=== PATIENT | female | born 1970 | race Caucasian/White ===

== ENCOUNTER 2018-06-19 15:48 | Inpatient (IN) | payer OTHER ==
[2018-06-19] MEDS ORDERED: Albuterol/Ipratropium NEB.SOL* Albuterol 2.5 MG/Ipratropium 0.5 MG 3 ML INH ONE (15:59)
[2018-06-19 16:25] LABS: Influenza A Molecular NEGATIVE (Negative); Influenza B Molecular NEGATIVE (Negative)
[2018-06-19 16:34] LABS: Hematocrit 37 % (35-47); Hemoglobin 12.5 g/dl (12.0-16.0); Mean Corpuscular HGB Conc 34 g/dl (31-36); Mean Corpuscular Hemoglobin 34 pg (27-31); Mean Corpuscular Volume 100 fL (80-97); Mean Platelet Volume 7.1 fL (7.4-10.4); Platelet Count 227 10^3/ul (150-450); Red Blood Count 3.68 10^6/ul (4.00-5.40); Red Cell Distribution Width 13 % (10.5-15); White Blood Count 13.4 10^3/ul (3.5-10.8)
[2018-06-19 16:42] LABS: INR 0.94 (0.77-1.02)
[2018-06-19] MEDS ORDERED: NS 0.9% 1000 ML** 1,000 ML IV.FLUID IV ONE (16:43)
[2018-06-19] MEDS ORDERED: Piperacillin/Tazobac ADVAN(*) 3.375 GM in NS 0.9% 100 ML* 100 ML IVPB ONE (16:43)
[2018-06-19 16:53] LABS: ALT 16 U/L (7-52); AST 22 U/L (13-39); Albumin 4.2 g/dL (3.2-5.2); Albumin/Globulin Ratio 1.7 (1-3); Alkaline Phosphatase 61 U/L (34-104); Anion Gap 10 mmol/L (2-11); Blood Urea Nitrogen 11 mg/dL (6-24); C Reactive Protein 81.35 mg/L (<8.01); CO2 Carbon Dioxide 22 mmol/L (22-32); Calcium 8.8 mg/dL (8.6-10.3); Chloride 99 mmol/L (101-111); Creatine Kinase 202 U/L (10-223); EGFR African American 127.8 (>60); EGFR Non-African American 105.6 (>60); Globulin 2.5 g/dL (2-4); Glucose 128 mg/dL (70-100); Potassium 3.2 mmol/L (3.5-5.0); Sodium 131 mmol/L (135-145); Total Protein 6.7 g/dL (6.4-8.9)
--- NOTE | 2018-06-19 16:54 | ED ---
Shortness of Breath - HPI Summary HPI Summary: Patient is a 47-year-old female with a history of smoking and alcohol abuse presenting to the ED with acute onset right sided chest pain, severe SOB, stating "I couldn't breathe for at least a minute." She denies any radiation of this chest pain. She endorses diaphoresis, denies chills, denies known fevers. She states she is a chronic alcoholic and drank most recently last evening. She states she felt "somewhat ill." Yesterday, but denied any SOB or chest pain. She denies history of blood clots, calf pain or recent travel. She denies any known malignancy. She denies any numbness or tingling in the upper or lower extremities. She denies any visual changes or disturbances. She denies any confusion or memory loss. She states she is able to move all extremities well and denies any pain at this time. Patient was brought in by EMS with a sat of 83% on a nonrebreather, which improved to 92% on 3 L by the time of arrival. She remains on 3L. Temperature 100.1, respirations 22, tachycardia at 128, 127/77. Significant in her history is also strokelike symptoms on of this year. She states for approximately 45 minutes she was unable to speak and could not move. She did not call the ambulance and family did not call ambulance. Symptoms resolved spontaneously and she never followed up with her physician or came to the ED. - History of Current Complaint Chief Complaint: EDShortnessOfBreath Time Seen by Provider: 06/19/18 15:56 Hx Obtained From: Patient Onset/Duration: Sudden Onset Timing: Constant Current Severity: Severe Dyspnea At: Rest Aggrevating Factors: Deep Breaths, Recumbent Position Alleviating Factors: Bronchodilators, EMS Tx, Oxygen, Upright Position Associated Signs & Symptoms: Cough (Productive), Chest Pain w/Cough - Risk Factors Pulmonary Embolism: Negative Cardiac: Smoking Pseudomonas: Chronic Lung Disease Tuberculosis: Immune Deficiency, Malnutrition, Chronic Respiratory Failure, Smoking, Alcohol Abuse - Allergy/Home Medications Allergies/Adverse Reactions: Allergies Allergy/AdvReac Type Severity Reaction Status Date / Time No Known Allergies Allergy Verified 06/19/18 16:29 Home Medications: Home Medications Albuterol Sulfate [Ventolin Hfa] 2 puff INH Q4HR 06/19/18 [History Confirmed 11/30] Citalopram Hydrobromide [Citalopram HBr] 40 mg PO DAILY 06/19/18 [History Confirmed 06/19/18] Gabapentin 300 mg PO TID 06/19/18 [History Confirmed 06/19/18] Ibuprofen 800 mg PO TID PRN 06/19/18 [History Confirmed 06/19/18] Ipratropium HFA INHALER(NF) [Atrovent Hfa Inhaler(NF)] 2 puff INHH Q4HR [History Confirmed 06/19/18] Omeprazole 20 mg PO DAILY 06/19/18 [History Confirmed 06/19/18] PMH/Surg Hx/FS Hx/Imm Hx Previously Healthy: Yes - Immunization History Hx Pertussis Vaccination: No Immunizations Up to Date: Yes Infectious Disease History: No Infectious Disease History: Denies: Traveled Outside the [place] in Last 30 Days - Social History Occupation: Employed Part-time Lives: With Family Alcohol Use: Occasionally Hx Substance Use: No Substance Use Type: Reports: None Hx Tobacco Use: Yes Smoking Status (MU): Heavy Every Day Tobacco Smoker Review of Systems Constitutional: Negative Negative: Fever, Chills, Fatigue, Skin Diaphoresis Negative: Blurred Vision Negative: Sore Throat Positive: Chest Pain. Negative: Palpitations Positive: Shortness Of Breath, Cough, Other - hemoptysis Negative: Abdominal Pain, Vomiting, Diarrhea, Nausea Genitourinary: Negative Positive: no symptoms reported, see HPI Negative: Rash, Bruising Neurological: Negative All Other Systems Reviewed And Are Negative: Yes Physical Exam Triage Information Reviewed: Yes Vital Signs On Initial Exam: Initial Vitals Temp Pulse Resp BP Pulse Ox 100.1 F 128 22 127/77 92 06/19/18 15:54 06/19/18 15:54 06/19/18 15:54 06/19/18 15:54 06/19/18 15:54 Vital Signs Reviewed: Yes Appearance: Positive: Ill-Appearing, Pain Distress Skin: Positive: Skin Color Reflects Adequate Perfusion Head/Face: Positive: Normal Head/Face Inspection Eyes: Positive: EOMI, ALVINO ENT: Positive: Pharynx normal Neck: Positive: Supple, No Lymphadenopathy Respiratory/Lung Sounds: Positive: Rhonchi - R lung base, Wheezes Cardiovascular: Positive: Pulses are Symmetrical in both Upper and Lower Extremities, Tachycardia. Negative: Leg Edema Left, Leg Edema Right Musculoskeletal: Positive: Normal, Strength/ROM Intact Neurological: Positive: Speech Normal Psychiatric: Positive: Affect/Mood Appropriate AVPU Assessment: Alert Diagnostics - Vital Signs Vital Signs Temp Pulse Resp BP Pulse Ox 06/19/18 16:05 109 14 94 06/19/18 15:54 100.1 F 128 22 127/77 92 - Laboratory Lab Results: Lab Results 06/19/18 06/19/18 06/19/18 Range/Units 15:34 15:34 16:13 WBC 13.4 H (3.5-10.8) 10^3/ul RBC 3.68 L (4.00-5.40) 10^6/ul Hgb 12.5 (12.0-16.0) g/dl Hct 37 (35-47) % MCV 100 H (80-97) fL MCH 34 H (27-31) pg MCHC 34 (31-36) g/dl RDW 13 (10.5-15) % Plt Count 227 (150-450) 10^3/ul MPV 7.1 L (7.4-10.4) fL Neut % (Auto) Pending Lymph % (Auto) Pending Gre[place] % (Auto) Pending Eos % (Auto) Pending Baso % (Auto) Pending Absolute Neuts (auto) Pending Absolute Lymphs (auto) Pending Absolute Monos (auto) Pending Absolute Eos (auto) Pending Absolute Basos (auto) Pending Absolute Nucleated RBC Pending Nucleated RBC % Pending INR (Anticoag Therapy) 0.94 (0.77-1.02) D-Dimer, Quantitative 239 H (Less Than 230) ng/mL Influenza A (Rapid) Negative (Negative) Influenza B (Rapid) Negative (Negative) Result Diagrams: 06/22/18 05:42 06/23/18 07:02 Lab Statement: Any lab studies that have been ordered have been reviewed, and results considered in the medical decision making process. Course/Dx - Course Course Of Treatment: During the course, treatment, the patient is evaluated for acute onset SOB and CP most notably over the right chest wall, which occurred 1 hour LIGHTING SPECIALIST. She states there was a short period of time where she could not take a breath. She was able to call the ambulance. By the time ambulance arrived, she was satting at 82%. She was placed on a nonrebreather and then at 3 L nasal cannula and her sat on arrival was 92%. Her vital signs on arrival, met septic criteria. 100.1 temperature, tachycardia 128, respirations 20, BP 127/ 77. Due to vital signs, patient was placed on septic protocol and fluids and Zosyn are given. Stat x-ray obtained which show a right lower lobe density that most likely represents pneumonia according to the patients age. After an appropriate course of therapy, follow-up imaging is advised to ascertain resolution. On reexamination after x-ray was performed, she is currently on 3L at her sat is 93%. Due to her low O2 sat and onset of symptoms and low O2 sat, which is most likely not her baseline, CTA obtained. She appears diaphoretic and uncomfortable. She is very fidgety on physical examination, and she states this is likely secondary to her alcohol use and the uncomfortability in her chest. Awaiting CTA she is signed out to Denae Banks PA-C. - Diagnoses Differential Diagnosis/HQI/PQRI: Positive: Bronchitis Provider Diagnoses: Pneumonia Discharge - Sign-Out/Discharge Documenting (check all that apply): Sign-Out Patient Signing out patient TO: Brii Banks All imaging exams completed and their final reports reviewed: Yes - Discharge Plan Condition: Fair Disposition: ADMITTED TO [facility] - Billing Disposition and Condition Condition: FAIR Disposition: Admitted to [facility]
[2018-06-19] MEDS ORDERED: Iohexol 350* (CONTRAST) 500 ML MDV IV ONE (16:55)
[2018-06-19 16:57] LABS: CKMB ng/mL 4.8 ng/mL (0.6-6.3)
[2018-06-19 16:59] LABS: HCG Pregnancy < 0.60 mIU/mL
[2018-06-19 17:07] LABS: Immature Granulocytes 15 % (0-9); Lymphocytes % 6 %; Monocytes % 4 %; Neutrophil % 75 %
[2018-06-19 17:09] LABS: ABS Basophils 0 10^3/ul (0-0.2); ABS Eosinophils 0 10^3/ul (0-0.6); ABS Lymphocytes 0.4 10^3/ul (1.0-4.8); ABS Monocytes 0.4 10^3/ul (0-0.8); ABS Neutrophils 12.6 10^3/ul (1.5-7.7); ABS Nucleated RBC 0 10^3/ul; Nucleated Red Blood Cells % 0
--- NOTE | 2018-06-19 17:49 | ED ---
Progress - Progress Note Progress Note: patient signed out by valeria pending CTA CTA chest: IMPRESSION: 1. No filling defects of the centrilobular pulmonary arteries to indicate pulmonary embolism. 2. CT findings are most consistent with pneumonia predominantly involving the right middle lobe. Follow-up chest x-ray after an appropriate course of therapy is still advised to ascertain resolution. discussed with patient as still is requiring o2 in ED and hypoxia at home with no at home oxygen for copd will admit patient. 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 She states there was a short period of time where she could not take a breath. She was able to call the ambulance. By the time ambulance arrived, she was satting at 82%. She was placed on a nonrebreather and then at 3 L nasal cannula and her sat on arrival was 92%. Her vital signs on arrival, met septic criteria. 100.1 temperature, tachycardia 128, respirations 20, BP 127/ 77. Due to vital signs, patient was placed on septic protocol and fluids and Zosyn are given. Stat x-ray obtained which show a right lower lobe density that most likely represents pneumonia according to the patients age. After an appropriate course of therapy, follow-up imaging is advised to ascertain resolution. On reexamination after x-ray was performed, she is currently on 3L at her sat is 93%. Due to her low O2 sat and onset of symptoms and low O2 sat, which is most likely not her baseline, CTA obtained. She appears diaphoretic and uncomfortable. She is very fidgety on physical examination, and she states this is likely secondary to her alcohol use and the uncomfortability in her chest. CTA no PE. pneumonia present. discussed with hospitalist who agree to admit - Diagnoses Provider Diagnoses: Pneumonia Discharge - Sign-Out/Discharge Documenting (check all that apply): Patient Departure, Receiving Sign-Out Receiving patient FROM: Valeria Norris - Discharge Plan Condition: Stable Disposition: ADMITTED TO [facility] - Billing Disposition and Condition Condition: STABLE Disposition: Admitted to [facility]
[2018-06-19] MEDS ORDERED: methylPREDNISolone 125 MG* 2 ML VIAL IV ONE (18:00)
[2018-06-19] MEDS ORDERED: Ibuprofen TAB* 600 MG PO ONE (18:13)
[2018-06-19] MEDS ORDERED: Ibuprofen TAB* 600 MG ONE (18:14)
[2018-06-19] MEDS ORDERED: Thiamine IV 100 MG, Folic Acid IV* 1 MG, Multiple Vitamin IV ADULT* 10 ML in NS 0.9% 10... IV ONE (18:37)
[2018-06-19] MEDS ORDERED: Ibuprofen TAB* 800 MG PO PRN (18:41)
[2018-06-19] MEDS: KCL 20 MEQ/100 ML IVPREMIX* 20 MEQ/100 ML BAG IV SCH ×2 (18:42→20:25)
[2018-06-19] MEDS: Albuterol/Ipratropium NEB.SOL* Albuterol 2.5 MG/Ipratropium 0.5 MG 3 ML INH SCH ×2 (19:37→23:12)
[2018-06-19] MEDS: cefTRIAXone(*) 1 GM in NS 0.9% 50 ML* 50 ML IVPB SCH (20:20)
[2018-06-19] MEDS: Azithromycin IV(*) 500 MG in NS 0.9% 250 ML* 250 ML IVPB SCH (20:24)
[2018-06-19] MEDS: Gabapentin CAP(*) 300 MG PO SCH (20:25)
--- NOTE | 2018-06-19 20:32 | HP ---
HISTORY AND PHYSICAL: DATE OF ADMISSION: 06/19/18 PRIMARY CARE PHYSICIAN: The patient does not have a primary care doctor listed. CHIEF COMPLAINT: Chest pressure at the right lung associated with cough. HISTORY OF PRESENT ILLNESS: This is a 47-year-old female with past medical history significant for COPD, smoker, asthma who presents to the emergency room because of chest pressure at the right lung associated with hemoptysis. She reports that she is having a hard time taking inspiration breath, deep inspiration which is then followed by having pain and cough. She is reporting fever at home, reports fever of 101 at home, no chills. She does have generalized fatigue and malaise. She continues to smoke 1/2 Pack per day to one pack per day. PAST MEDICAL HISTORY: 1. Asthma. 2. COPD. 3. Smoker. PAST SURGICAL HISTORY: Ovarian cyst removal. MEDICATIONS: Home medications: 1. Albuterol sulfate 18 g inhaler 2 puffs every 4 hours. 2. Ipratropium of 2 puff inhaler every 4 hours as needed. 3. Citalopram 40 mg daily. 4. Gabapentin 200 mg 3 times a day. 5. Ibuprofen 800 mg as needed. 6. Omeprazole 20 mg daily. FAMILY HISTORY: Mother: Liver cirrhosis. Father: COPD. SOCIAL HISTORY: She lives at home, she drinks daily, smokes half a pack to a pack a day. REVIEW OF SYSTEMS: The patient reporting fever; however, no chills. She does have generalized fatigue and malaise. She is having right-sided chest pain, reports no lower extremity edema. Respiratory: As per HPI. GI: No nausea, no vomiting, no abdominal pain, no diarrhea. : No gross hematuria, no dysuria. Neurological: No focal weakness or sensory loss. Eyes: No visual complaints. No blurry vision. ENT: No dysphagia. Musculoskeletal: No arthralgia or myalgia. Skin: No rashes or lesions. Psychiatric: No psychosis or anxiety. PHYSICAL EXAMINATION GENERAL APPEARANCE: This is a well-developed, well-nourished female, lying in an ER stretcher in mild respiratory distress. VITAL SIGNS: Blood pressure is 141/91, pulse ox of 91% on 2 L nasal cannula, respiratory rate 23, heart rate 102, temperature of 98.5 Fahrenheit. HEENT: Pupils equal, round, reactive to light, atraumatic, normocephalic. LUNGS: There is mild tachypnea with rhonchi heard at the right lower lung field with scattered wheezing. CARDIAC: Regular rate and rhythm. No murmurs, rubs, or gallops. ABDOMEN: Bowel sounds are normal in all 4 quadrants. Abdomen is soft, nontender, nondistended. MUSCULOSKELETAL: There is no cyanosis, clubbing, or edema. Range of motion is intact. NEUROLOGICAL: Alert, oriented x3, with no focal neurological deficits. Tongue is midline. There is no facial droop, symmetric smile. Speech is clear and coherent. PSYCHOLOGICAL: Alert and oriented x3. SKIN: No rashes or lesions. DIAGNOSTIC STUDIES/LAB DATA: White count of 13.4, hemoglobin of 12.5, hematocrit of 37, platelets of 227,000. Absolute neutrophil count of 12.6. INR of 0.94. D- dimer of 239. Chemistry: Sodium 131, potassium 3.2, chloride 99, glucose 128, BUN 11, creatinine of 0.61. Influenza A and B are negative. CT of the chest shows no pulmonary embolism; however, it shows having finding consistent with right middle lobe pneumonia. EKG was done, which shows sinus tachycardia. Troponin was 0.00, CK-MB is 4.8. IMPRESSION AND PLAN: 1. Pneumonia/sepsis with hypoxic respiratory failure: We will start the patient on IV fluids with Rocephin, azithromycin. Blood cultures sent by the ER. Sputum culture ordered. Urine legionella ordered. IV fluids. 2. Hypokalemia: Repletion has been ordered. 3. Hyponatremia: Give IV fluids. Monitor sodium level in the morning. 4. Smoker: Nicotine patch ordered. Smoking cessation advised. 5. Chronic alcohol use: We will start daily multivitamins, folic acid, thiamine, we will monitor for signs and symptoms of alcohol withdrawal. 6. DVT prophylaxis: Heparin subcutaneously. 7. GI prophylaxis, on Prilosec at home. We will substitute for here. 8. Code status: Full code. 9. DVT prophylaxis: Heparin subcutaneously. 10. Disposition: Pending hospital and inpatient progress. [id number]/CPS #: [id number] MTDD
[2018-06-19] MEDS ORDERED: Acetaminophen TAB* 325 MG PO PRN (21:29)
[2018-06-19] MEDS: HYDROcodone/ACETAMIN 5-325 MG* 1 TAB PO PRN (22:08)
[2018-06-19] MEDS: LORazepam TAB(*) 1 MG PO SCH (22:56)
[2018-06-19] MEDS ORDERED: LORazepam TAB(*) 1 MG PO SCH (23:00)
[2018-06-19] MEDS: Heparin VIAL(*) 5000 UNITS/ML VIAL (FIVE THOUSAND) SUBCUT SCH (23:19)
[2018-06-20] MEDS: NS 0.9% 1000 ML** 1,000 ML IV SCH ×2 (01:48→13:26)
[2018-06-20] MEDS: Albuterol/Ipratropium NEB.SOL* Albuterol 2.5 MG/Ipratropium 0.5 MG 3 ML INH SCH ×3 (03:24→11:30)
[2018-06-20] MEDS: Heparin VIAL(*) 5000 UNITS/ML VIAL (FIVE THOUSAND) SUBCUT SCH ×3 (05:23→22:00)
[2018-06-20] MEDS: Nicotine Patch Removal NOTE FOLLOW UP SCH (05:23)
[2018-06-20 07:08] LABS: Hematocrit 32 % (35-47); Hemoglobin 10.8 g/dl (12.0-16.0); Mean Corpuscular HGB Conc 34 g/dl (31-36); Mean Corpuscular Hemoglobin 35 pg (27-31); Mean Corpuscular Volume 100 fL (80-97); Mean Platelet Volume 7.6 fL (7.4-10.4); Platelet Count 177 10^3/ul (150-450); Red Blood Count 3.15 10^6/ul (4.00-5.40); Red Cell Distribution Width 13 % (10.5-15)
[2018-06-20 07:31] LABS: BUN/Creatinine Ratio 18.4 (8-20); Calcium 7.9 mg/dL (8.6-10.3); EGFR African American 164.5 (>60); Magnesium 1.5 mg/dL (1.9-2.7); Phosphorus 1.9 mg/dL (2.5-5.0); Potassium 3.6 mmol/L (3.5-5.0)
[2018-06-20] MEDS: Folic Acid TAB* 1 MG PO SCH (07:52)
[2018-06-20] MEDS: Gabapentin CAP(*) 300 MG PO SCH ×3 (07:52→21:07)
[2018-06-20] MEDS: Citalopram TAB* 40 MG PO SCH (07:53)
[2018-06-20] MEDS: Omeprazole CAP (NF) 20 MG CAP.DR PO SCH (07:53)
[2018-06-20] MEDS: predniSONE TAB* 20 MG PO SCH (07:53)
[2018-06-20] MEDS: Thiamine TAB* 100 MG TAB PO SCH (07:53)
[2018-06-20] MEDS: Nicotine PATCH 14 MG/24 HR* PATCH TRANSDERM SCH (07:54)
[2018-06-20] MEDS: HYDROcodone/ACETAMIN 5-325 MG* 1 TAB PO PRN ×2 (08:04→21:07)
[2018-06-20] MEDS: LORazepam TAB(*) 1 MG PO SCH ×2 (08:04→15:46)
[2018-06-20] MEDS ORDERED: Multivitamins ADULT w/MIN LIQ* 15 ML UDC PO SCH (09:00)
[2018-06-20] MEDS ORDERED: Magnesium Sulfate 2 GM IV* 2 GM/50 ML BAG IVPB ONE (12:22)
--- NOTE | 2018-06-20 12:29 | PN ---
Subjective Date of Service: 06/20/18 Interval History: Admitted yesterday for pneumonia, no overnight issues, continues to have some cough. Objective Active Medications: Acetaminophen (Tylenol Tab*) 650 mg PO Q4H PRN PRN Reason: FEVER/HEADACHE Hydrocodone Bitart/Acetaminophen ([place] 5-325 Tab*) 1 tab PO Q6H PRN PRN Reason: PAIN Last Admin: 06/20/18 08:04 Dose: 1 tab Citalopram Hydrobromide (Celexa Tab*) 40 mg PO DAILY [facility] Last Admin: 06/20/18 07:53 Dose: 40 mg Folic Acid (Folvite Tab*) 1 mg PO DAILY [facility] Last Admin: 06/20/18 07:52 Dose: 1 mg Gabapentin (Neurontin Cap(*)) 300 mg PO TID [facility] Last Admin: 06/20/18 07:52 Dose: 300 mg Heparin Sodium (Porcine) (Heparin Vial(*)) 5,000 units SUBCUT Q8HR [facility] Last Admin: 06/20/18 05:23 Dose: 5,000 units Ceftriaxone Sodium 1 gm/ (Sodium Chloride) 50 mls @ 200 mls/hr IVPB Q24H [facility] Last Admin: 06/19/18 20:20 Dose: 200 mls/hr Azithromycin 500 mg/ Sodium (Chloride) 250 mls @ 250 mls/hr IVPB Q24H [facility] Last Admin: 06/19/18 20:24 Dose: 250 mls/hr Sodium Chloride (Ns 0.9% 1000 Ml*) 1,000 mls @ 100 mls/hr IV PER RATE [facility] Last Admin: 06/20/18 01:48 Dose: 100 mls/hr Magnesium Sulfate (Magnesium Sulfate 2 Gm Iv*) 2 gm in 50 mls @ 50 mls/hr IVPB ONCE ONE Stop: 06/20/18 13:21 Potassium Phosphate 10 mmole/ (Sodium Chloride) 253.3333 mls @ 42 mls/hr IVPB ONCE ONE Stop: 06/20/18 18:23 Ibuprofen (Motrin Tab*) 800 mg PO TID PRN PRN Reason: PAIN Lorazepam (Ativan Tab(*)) 0 - 6 mg PO .PER WAM PROTOCOL [facility]; Protocol Lorazepam (Ativan Tab(*)) 2 mg PO Q8H KERRY; Taper Stop: 06/22/18 18:59 Last Admin: 06/20/18 08:04 Dose: 2 mg Nicotine (Nicotine Patch 14 Mg/24 Hr*) 1 patch TRANSDERM DAILY [facility] Last Admin: 06/20/18 07:54 Dose: Not Given Omeprazole (Prilosec Cap*) 20 mg PO DAILY [facility] Last Admin: 06/20/18 07:53 Dose: 20 mg Pharmacy Profile Note (Nicotine Patch Removal Note*) 1 note FOLLOW UP 0600 [facility] Last Admin: 06/20/18 05:23 Dose: Not Given Prednisone (Deltasone Tab*) 40 mg PO DAILY [facility] Last Admin: 06/20/18 07:53 Dose: 40 mg Thiamine HCl (Vitamin B-1 Tab*) 100 mg PO DAILY [facility] Last Admin: 06/20/18 07:53 Dose: 100 mg Vital Signs - 8 hr 06/20/18 06/20/18 06/20/18 05:59 07:25 07:52 Temperature 97.7 F Pulse Rate 87 62 Respiratory 20 18 16 Rate Blood Pressure 158/70 (mmHg) O2 Sat by Pulse 98 100 Oximetry 06/20/18 06/20/18 06/20/18 08:00 08:04 08:10 Temperature 97.7 F Pulse Rate 76 Respiratory 18 16 16 Rate Blood Pressure 123/86 (mmHg) O2 Sat by Pulse 99 Oximetry 06/20/18 06/20/18 06/20/18 10:10 11:06 11:07 Temperature Pulse Rate Respiratory 16 16 16 Rate Blood Pressure (mmHg) O2 Sat by Pulse Oximetry Oxygen Devices in Use Now: None Appearance: tired appearing, not in distress. Eyes: PERRLA Respiratory: - - mild rhonchi with wheezing. Abdominal: NL Sounds; No Tenderness; No Distention Extremities: No Edema Skin: No Rash or Ulcers Result Diagrams: 06/20/18 06:51 06/20/18 06:51 Additional Lab and Data: Lab Results 06/19/18 06/19/18 06/19/18 Range/Units 15:34 15:34 16:13 WBC 13.4 H (3.5-10.8) 10^3/ul RBC 3.68 L (4.00-5.40) 10^6/ul Hgb 12.5 (12.0-16.0) g/dl Hct 37 (35-47) % MCV 100 H (80-97) fL MCH 34 H (27-31) pg MCHC 34 (31-36) g/dl RDW 13 (10.5-15) % Plt Count 227 (150-450) 10^3/ul MPV 7.1 L (7.4-10.4) fL Neut % (Auto) Pending Lymph % (Auto) Pending [facility] % (Auto) Pending Eos % (Auto) Pending Baso % (Auto) Pending Absolute Neuts (auto) Pending Absolute Lymphs (auto) Pending Absolute Monos (auto) Pending Absolute Eos (auto) Pending Absolute Basos (auto) Pending Absolute Nucleated RBC Pending Nucleated RBC % Pending INR (Anticoag Therapy) 0.94 (0.77-1.02) D-Dimer, Quantitative 239 H (Less Than 230) ng/mL Influenza A (Rapid) Negative (Negative) Influenza B (Rapid) Negative (Negative) Microbiology and Other Data: Microbiology 06/19/18 15:34 Anaerobic Blood Culture - Preliminary Blood Venous 06/20/18 08:25 Gram Stain - Final Sputum 06/19/18 15:57 Influenza Types A,B Antigen - Final Nasal Specimen received for Influenza A/B Molecular testing Assess/Plan/Problems-Billing Assessment: 47 year Female with asthma/copd, here with pneumonia and COPD exacerbation. Also found to have bactremia. - Patient Problems (1) Bacteremia Current Visit: Yes Status: Acute Code(s): R78.81 - BACTEREMIA SNOMED Code( s): 4127393 Comment: Blood culture from 06/19 shows GPC, repeat cultures sent, continue w/ rocephin and azithyromcyin. (2) Pneumonia Current Visit: Yes Status: Acute Code(s): J18.9 - PNEUMONIA, UNSPECIFIED ORGANISM SNOMED Code(s): 318317501 Comment: right middle lobe pneumonia, c/w rocephin and azithromycin Day 2. (3) COPD exacerbation Current Visit: Yes Status: Acute Code(s): J44.1 - CHRONIC OBSTRUCTIVE PULMONARY DISEASE W (ACUTE) EXACERBATION SNOMED Code(s): 527313813 Comment: continue prednisone 40mg, duonebs. currently on room air. (4) Smoker Current Visit: Yes Status: Acute Code(s): F17.200 - NICOTINE DEPENDENCE, UNSPECIFIED, UNCOMPLICATED SNOMED Code(s): 62436556 Comment: nicotine patch (5) Alcohol use Current Visit: Yes Status: Acute Code(s): Z78.9 - OTHER SPECIFIED HEALTH STATUS SNOMED Code(s): 611295 Comment: continue thiamine, folic acid. (6) DVT prophylaxis Current Visit: Yes Status: Acute Code(s): FPM2596 - SNOMED Code(s): 433772446 Comment: heparin subQ (7) Hypomagnesemia Current Visit: Yes Status: Acute Code(s): E83.42 - HYPOMAGNESEMIA SNOMED Code(s): 579424459 Comment: repleted 06/20 (8) Hypokalemia Current Visit: Yes Status: Acute Code(s): E87.6 - HYPOKALEMIA SNOMED Code( s): 62699335 Comment: Repleted 06/20. (9) Hypophosphatemia Current Visit: Yes Status: Acute Code(s): E83.39 - OTHER DISORDERS OF PHOSPHORUS METABOLISM SNOMED Code(s): 7925665 Comment: repleted 06/20
[2018-06-20] MEDS ORDERED: Potassium Phosphate IV* 10 MMOLE in NS 0.9% 250 ML* 250 ML IVPB ONE (13:00)
[2018-06-20] MEDS ORDERED: Mouth Piece, Nicotine* 1 EACH CARTRIDGE ONE (21:00)
[2018-06-20] MEDS ORDERED: Nicotine Inhaler* 10 MG AMP ONE (21:01)
[2018-06-20] MEDS: cefTRIAXone(*) 1 GM in NS 0.9% 50 ML* 50 ML IVPB SCH (21:06)
[2018-06-20] MEDS ORDERED: Mouth Piece, Nicotine* 1 EACH CARTRIDGE INH ONE (22:00)
[2018-06-20] MEDS: Azithromycin IV(*) 500 MG in NS 0.9% 250 ML* 250 ML IVPB SCH (22:00)
[2018-06-21] MEDS: NS 0.9% 1000 ML** 1,000 ML IV SCH ×2 (02:33→14:11)
[2018-06-21] MEDS: Albuterol/Ipratropium NEB.SOL* Albuterol 2.5 MG/Ipratropium 0.5 MG 3 ML INH PRN ×3 (04:34→22:04)
[2018-06-21] MEDS: Nicotine Patch Removal NOTE FOLLOW UP SCH (05:44)
[2018-06-21] MEDS: Heparin VIAL(*) 5000 UNITS/ML VIAL (FIVE THOUSAND) SUBCUT SCH ×3 (05:48→22:53)
[2018-06-21 06:30] LABS: Hematocrit 29 % (35-47); Hemoglobin 9.9 g/dl (12.0-16.0); Mean Corpuscular HGB Conc 34 g/dl (31-36); Mean Corpuscular Hemoglobin 34 pg (27-31); Mean Corpuscular Volume 101 fL (80-97); Platelet Count 163 10^3/ul (150-450); Red Blood Count 2.91 10^6/ul (4.00-5.40); Red Cell Distribution Width 13 % (10.5-15); White Blood Count 16.1 10^3/ul (3.5-10.8)
[2018-06-21 06:52] LABS: BUN/Creatinine Ratio 16.7 (8-20); Calcium 7.9 mg/dL (8.6-10.3); EGFR African American 168.5 (>60); EGFR Non-African American 139.2 (>60); Magnesium 1.9 mg/dL (1.9-2.7); Phosphorus 1.4 mg/dL (2.5-5.0); Potassium 3.4 mmol/L (3.5-5.0)
[2018-06-21] MEDS ORDERED: Potassium Phosphate IV* 15 MMOLE in NS 0.9% 250 ML* 250 ML IVPB ONE (07:54)
[2018-06-21] MEDS: Omeprazole CAP (NF) 20 MG CAP.DR PO SCH (08:05)
[2018-06-21] MEDS: predniSONE TAB* 20 MG PO SCH (08:05)
[2018-06-21] MEDS: Folic Acid TAB* 1 MG PO SCH (08:05)
[2018-06-21] MEDS: HYDROcodone/ACETAMIN 5-325 MG* 1 TAB PO PRN ×2 (08:05→22:55)
[2018-06-21] MEDS: Citalopram TAB* 40 MG PO SCH (08:06)
[2018-06-21] MEDS: Thiamine TAB* 100 MG TAB PO SCH (08:06)
[2018-06-21] MEDS: Nicotine PATCH 14 MG/24 HR* PATCH TRANSDERM SCH (08:06)
[2018-06-21] MEDS: Gabapentin CAP(*) 300 MG PO SCH ×3 (08:06→22:51)
--- NOTE | 2018-06-21 10:38 | PN ---
Subjective Date of Service: 06/21/18 Interval History: No acute issues overnight. Not having any shortness of breath, minimal cough, chest pain at the right side has subsided. Objective Active Medications: Acetaminophen (Tylenol Tab*) 650 mg PO Q4H PRN PRN Reason: FEVER/HEADACHE Hydrocodone Bitart/Acetaminophen ([place] 5-325 Tab*) 1 tab PO Q6H PRN PRN Reason: PAIN Last Admin: 06/21/18 08:05 Dose: 1 tab Albuterol/Ipratropium (Duoneb (Albuterol 2.5 Mg/Ipratropium 0.5 Mg)) 1 neb INH Q4H PRN PRN Reason: SOB/WHEEZING Last Admin: 06/21/18 08:42 Dose: 1 neb Citalopram Hydrobromide (Celexa Tab*) 40 mg PO DAILY [facility] Last Admin: 06/21/18 08:06 Dose: 40 mg Folic Acid (Folvite Tab*) 1 mg PO DAILY [facility] Last Admin: 06/21/18 08:05 Dose: 1 mg Gabapentin (Neurontin Cap(*)) 300 mg PO TID [facility] Last Admin: 06/21/18 08:06 Dose: 300 mg Heparin Sodium (Porcine) (Heparin Vial(*)) 5,000 units SUBCUT Q8HR [facility] Last Admin: 06/21/18 05:48 Dose: 5,000 units Ceftriaxone Sodium 1 gm/ (Sodium Chloride) 50 mls @ 200 mls/hr IVPB Q24H [facility] Last Admin: 06/20/18 21:06 Dose: 200 mls/hr Azithromycin 500 mg/ Sodium (Chloride) 250 mls @ 250 mls/hr IVPB Q24H [facility] Last Admin: 06/20/18 22:00 Dose: 250 mls/hr Sodium Chloride (Ns 0.9% 1000 Ml*) 1,000 mls @ 100 mls/hr IV PER RATE [facility] Last Admin: 06/21/18 02:33 Dose: 100 mls/hr Potassium Phosphate 15 mmole/ (Sodium Chloride) 255 mls @ 42 mls/hr IVPB ONCE ONE Stop: 06/21/18 13:58 Last Admin: 06/21/18 09:32 Dose: 42 mls/hr Ibuprofen (Motrin Tab*) 800 mg PO TID PRN PRN Reason: PAIN Lorazepam (Ativan Tab(*)) 0 - 6 mg PO .PER [facility] PROTOCOL [facility]; Protocol Nicotine (Nicotine Patch 14 Mg/24 Hr*) 1 patch TRANSDERM DAILY [facility] Last Admin: 06/21/18 08:06 Dose: Not Given Nicotine (Nicotine Inhaler*) 10 mg INH Q2H PRN PRN Reason: CRAVING Omeprazole (Prilosec Cap*) 20 mg PO DAILY [facility] Last Admin: 06/21/18 08:05 Dose: 20 mg Pharmacy Profile Note (Nicotine Patch Removal Note*) 1 note FOLLOW UP 0600 [facility] Last Admin: 06/21/18 05:44 Dose: Not Given Prednisone (Deltasone Tab*) 40 mg PO DAILY [facility] Last Admin: 06/21/18 08:05 Dose: 40 mg Thiamine HCl (Vitamin B-1 Tab*) 100 mg PO DAILY [facility] Last Admin: 06/21/18 08:06 Dose: 100 mg Vital Signs - 8 hr 06/21/18 06/21/18 06/21/18 03:00 04:00 04:10 Temperature 98.2 F Pulse Rate 99 Respiratory 18 18 16 Rate Blood Pressure 154/94 (mmHg) O2 Sat by Pulse 96 Oximetry 06/21/18 06/21/18 06/21/18 04:34 07:00 07:15 Temperature 97.3 F Pulse Rate 82 90 Respiratory 20 18 16 Rate Blood Pressure 146/89 (mmHg) O2 Sat by Pulse 99 94 Oximetry 06/21/18 06/21/18 06/21/18 08:00 08:05 08:06 Temperature Pulse Rate Respiratory 16 18 18 Rate Blood Pressure (mmHg) O2 Sat by Pulse Oximetry Oxygen Devices in Use Now: Nasal Cannula Eyes: PERRLA Respiratory: - - mild rhonchi, no wheezing, no crackles. Cardiovascular: RRR, No Edema Abdominal: NL Sounds; No Tenderness; No Distention Neurological: Alert and Oriented x 3, - - no hand tremors. Result Diagrams: 06/21/18 06:04 06/21/18 06:04 Additional Lab and Data: Lab Results 06/19/18 06/19/18 06/19/18 Range/Units 15:34 15:34 16:13 WBC 13.4 H (3.5-10.8) 10^3/ul RBC 3.68 L (4.00-5.40) 10^6/ul Hgb 12.5 (12.0-16.0) g/dl Hct 37 (35-47) % MCV 100 H (80-97) fL MCH 34 H (27-31) pg MCHC 34 (31-36) g/dl RDW 13 (10.5-15) % Plt Count 227 (150-450) 10^3/ul MPV 7.1 L (7.4-10.4) fL Neut % (Auto) Pending Lymph % (Auto) Pending [place] % (Auto) Pending Eos % (Auto) Pending Baso % (Auto) Pending Absolute Neuts (auto) Pending Absolute Lymphs (auto) Pending Absolute Monos (auto) Pending Absolute Eos (auto) Pending Absolute Basos (auto) Pending Absolute Nucleated RBC Pending Nucleated RBC % Pending INR (Anticoag Therapy) 0.94 (0.77-1.02) D-Dimer, Quantitative 239 H (Less Than 230) ng/mL Influenza A (Rapid) Negative (Negative) Influenza B (Rapid) Negative (Negative) Microbiology and Other Data: Microbiology 06/19/18 15:34 Anaerobic Blood Culture - Preliminary Blood Venous 06/20/18 08:25 Gram Stain - Final Sputum 06/19/18 15:57 Influenza Types A,B Antigen - Final Nasal Specimen received for Influenza A/B Molecular testing Assess/Plan/Problems-Billing Assessment: 47 year Female with asthma/copd, here with pneumonia and COPD exacerbation. Also found to have bactremia. - Patient Problems (1) Bacteremia Current Visit: Yes Status: Acute Code(s): R78.81 - BACTEREMIA SNOMED Code( s): 0690030 Comment: Blood culture from 06/19 shows GPC, repeat cultures sent, continue w/ rocephin and azithyromcyin. (2) Pneumonia Current Visit: Yes Status: Acute Code(s): J18.9 - PNEUMONIA, UNSPECIFIED ORGANISM SNOMED Code(s): 859204862 Comment: right middle lobe pneumonia, c/w rocephin and azithromycin Day 3. urine legionella is negative., sputum shows strep pneumo (3) COPD exacerbation Current Visit: Yes Status: Acute Code(s): J44.1 - CHRONIC OBSTRUCTIVE PULMONARY DISEASE W (ACUTE) EXACERBATION SNOMED Code(s): 567649413 Comment: continue prednisone 40mg, duonebs. Improved. (4) Smoker Current Visit: Yes Status: Acute Code(s): F17.200 - NICOTINE DEPENDENCE, UNSPECIFIED, UNCOMPLICATED SNOMED Code(s): 35067010 Comment: nicotine patch (5) Alcohol use Current Visit: Yes Status: Acute Code(s): Z78.9 - OTHER SPECIFIED HEALTH STATUS SNOMED Code(s): 366248 Comment: Not withdrawing, will monitor for withdrawal. continue thiamine, folic acid. (6) DVT prophylaxis Current Visit: Yes Status: Acute Code(s): RBJ3292 - SNOMED Code(s): 865968663 Comment: heparin subQ (7) Hypomagnesemia Current Visit: Yes Status: Acute Code(s): E83.42 - HYPOMAGNESEMIA SNOMED Code(s): 650549067 Comment: repleted 06/20 (8) Hypokalemia Current Visit: Yes Status: Acute Code(s): E87.6 - HYPOKALEMIA SNOMED Code( s): 38183502 Comment: Repleted 06/21. (9) Hypophosphatemia Current Visit: Yes Status: Acute Code(s): E83.39 - OTHER DISORDERS OF PHOSPHORUS METABOLISM SNOMED Code(s): 3907590 Comment: repleted 06/21 Status and Disposition: Likely discharge home when medically stable.
[2018-06-21] MEDS: Nicotine Inhaler* 10 MG AMP INH PRN (14:49)
[2018-06-21] MEDS: cefTRIAXone(*) 1 GM in NS 0.9% 50 ML* 50 ML IVPB SCH (19:43)
[2018-06-21] MEDS: Azithromycin IV(*) 500 MG in NS 0.9% 250 ML* 250 ML IVPB SCH (21:00)
[2018-06-22] MEDS: NS 0.9% 1000 ML** 1,000 ML IV SCH ×2 (03:28→12:46)
[2018-06-22] MEDS: HYDROcodone/ACETAMIN 5-325 MG* 1 TAB PO PRN ×3 (04:44→19:47)
[2018-06-22 06:05] LABS: ABS Basophils 0 10^3/ul (0-0.2); ABS Eosinophils 0 10^3/ul (0-0.6); ABS Lymphocytes 2.8 10^3/ul (1.0-4.8); ABS Monocytes 0.6 10^3/ul (0-0.8); ABS Neutrophils 13.1 10^3/ul (1.5-7.7); ABS Nucleated RBC 0 10^3/ul; Eosinophil % 0.3 %; Hematocrit 30 % (35-47); Lymphocyte % 16.7 %; Mean Corpuscular HGB Conc 34 g/dl (31-36); Mean Corpuscular Hemoglobin 34 pg (27-31); Mean Corpuscular Volume 100 fL (80-97); Mean Platelet Volume 7.9 fL (7.4-10.4); Nucleated Red Blood Cells % 0.1; Platelet Count 183 10^3/ul (150-450); Red Blood Count 2.96 10^6/ul (4.00-5.40); Red Cell Distribution Width 13 % (10.5-15); White Blood Count 16.6 10^3/ul (3.5-10.8)
[2018-06-22 06:22] LABS: Calcium 8.1 mg/dL (8.6-10.3); EGFR African American 172.6 (>60); EGFR Non-African American 142.7 (>60); Magnesium 1.7 mg/dL (1.9-2.7); Potassium 3.2 mmol/L (3.5-5.0)
[2018-06-22] MEDS: Heparin VIAL(*) 5000 UNITS/ML VIAL (FIVE THOUSAND) SUBCUT SCH ×3 (06:25→21:28)
[2018-06-22] MEDS: Nicotine Patch Removal NOTE FOLLOW UP SCH (06:45)
[2018-06-22] MEDS: Citalopram TAB* 40 MG PO SCH (07:46)
[2018-06-22] MEDS: Thiamine TAB* 100 MG TAB PO SCH (07:47)
[2018-06-22] MEDS: Folic Acid TAB* 1 MG PO SCH (07:47)
[2018-06-22] MEDS: predniSONE TAB* 20 MG PO SCH (07:47)
[2018-06-22] MEDS: Gabapentin CAP(*) 300 MG PO SCH ×3 (07:47→21:24)
[2018-06-22] MEDS: Nicotine PATCH 14 MG/24 HR* PATCH TRANSDERM SCH (07:47)
[2018-06-22] MEDS: Omeprazole CAP (NF) 20 MG CAP.DR PO SCH (07:47)
[2018-06-22] MEDS ORDERED: Magnesium Sulfate 2 GM IV* 2 GM/50 ML BAG IVPB ONE (08:34)
--- NOTE | 2018-06-22 08:35 | PN ---
Subjective Date of Service: 06/22/18 Interval History: No acute issues overnight. Continues to have mild cough with sputum production, no shortness of breath, no chest pain. Objective Active Medications: Acetaminophen (Tylenol Tab*) 650 mg PO Q4H PRN PRN Reason: FEVER/HEADACHE Hydrocodone Bitart/Acetaminophen ([place] 5-325 Tab*) 1 tab PO Q6H PRN PRN Reason: PAIN Last Admin: 06/22/18 04:44 Dose: 1 tab Albuterol/Ipratropium (Duoneb (Albuterol 2.5 Mg/Ipratropium 0.5 Mg)) 1 neb INH Q4H PRN PRN Reason: SOB/WHEEZING Last Admin: 06/21/18 22:04 Dose: 1 neb Citalopram Hydrobromide (Celexa Tab*) 40 mg PO DAILY [facility] Last Admin: 06/22/18 07:46 Dose: 40 mg Folic Acid (Folvite Tab*) 1 mg PO DAILY [facility] Last Admin: 06/22/18 07:47 Dose: 1 mg Gabapentin (Neurontin Cap(*)) 300 mg PO TID [facility] Last Admin: 06/22/18 07:47 Dose: 300 mg Heparin Sodium (Porcine) (Heparin Vial(*)) 5,000 units SUBCUT Q8HR [facility] Last Admin: 06/22/18 06:25 Dose: 5,000 units Ceftriaxone Sodium 1 gm/ (Sodium Chloride) 50 mls @ 200 mls/hr IVPB Q24H [facility] Last Admin: 06/21/18 19:43 Dose: 200 mls/hr Azithromycin 500 mg/ Sodium (Chloride) 250 mls @ 250 mls/hr IVPB Q24H [facility] Last Admin: 06/21/18 21:00 Dose: 250 mls/hr Sodium Chloride (Ns 0.9% 1000 Ml*) 1,000 mls @ 100 mls/hr IV PER RATE [facility] Last Admin: 06/22/18 03:28 Dose: 100 mls/hr Magnesium Sulfate (Magnesium Sulfate 2 Gm Iv*) 2 gm in 50 mls @ 50 mls/hr IVPB ONCE ONE Stop: 06/22/18 09:33 Potassium Phosphate 15 mmole/ (Sodium Chloride) 255 mls @ 42 mls/hr IVPB ONCE ONE Stop: 06/22/18 14:37 Ibuprofen (Motrin Tab*) 800 mg PO TID PRN PRN Reason: PAIN Lorazepam (Ativan Tab(*)) 0 - 6 mg PO .PER [facility] PROTOCOL [facility]; Protocol Nicotine (Nicotine Patch 14 Mg/24 Hr*) 1 patch TRANSDERM DAILY [facility] Last Admin: 06/22/18 07:47 Dose: Not Given Nicotine (Nicotine Inhaler*) 10 mg INH Q2H PRN PRN Reason: CRAVING Last Admin: 06/21/18 14:49 Dose: 10 mg Omeprazole (Prilosec Cap*) 20 mg PO DAILY [facility] Last Admin: 06/22/18 07:47 Dose: 20 mg Pharmacy Profile Note (Nicotine Patch Removal Note*) 1 note FOLLOW UP 0600 [facility] Last Admin: 06/22/18 06:45 Dose: Not Given Prednisone (Deltasone Tab*) 40 mg PO DAILY [facility] Last Admin: 06/22/18 07:47 Dose: 40 mg Thiamine HCl (Vitamin B-1 Tab*) 100 mg PO DAILY [facility] Last Admin: 06/22/18 07:47 Dose: 100 mg Vital Signs - 8 hr 06/22/18 06/22/18 06/22/18 01:10 03:44 04:44 Temperature 98.0 F Pulse Rate 75 Respiratory 16 20 20 Rate Blood Pressure 152/108 (mmHg) O2 Sat by Pulse 95 Oximetry 06/22/18 06/22/18 06/22/18 07:05 07:44 07:47 Temperature 97.8 F Pulse Rate 76 Respiratory 16 16 16 Rate Blood Pressure 151/76 (mmHg) O2 Sat by Pulse 95 Oximetry 06/22/18 07:54 Temperature Pulse Rate Respiratory 16 Rate Blood Pressure (mmHg) O2 Sat by Pulse Oximetry Oxygen Devices in Use Now: None Eyes: PERRLA Ears/Nose/Mouth/Throat: Mucous Membranes Moist Respiratory: - - mild expiratory wheezing. Cardiovascular: RRR Neurological: Alert and Oriented x 3 Result Diagrams: 06/22/18 05:42 06/22/18 05:42 Additional Lab and Data: Lab Results 06/19/18 06/19/18 06/19/18 Range/Units 15:34 15:34 16:13 WBC 13.4 H (3.5-10.8) 10^3/ul RBC 3.68 L (4.00-5.40) 10^6/ul Hgb 12.5 (12.0-16.0) g/dl Hct 37 (35-47) % MCV 100 H (80-97) fL MCH 34 H (27-31) pg MCHC 34 (31-36) g/dl RDW 13 (10.5-15) % Plt Count 227 (150-450) 10^3/ul MPV 7.1 L (7.4-10.4) fL Neut % (Auto) Pending Lymph % (Auto) Pending [place] % (Auto) Pending Eos % (Auto) Pending Baso % (Auto) Pending Absolute Neuts (auto) Pending Absolute Lymphs (auto) Pending Absolute Monos (auto) Pending Absolute Eos (auto) Pending Absolute Basos (auto) Pending Absolute Nucleated RBC Pending Nucleated RBC % Pending INR (Anticoag Therapy) 0.94 (0.77-1.02) D-Dimer, Quantitative 239 H (Less Than 230) ng/mL Influenza A (Rapid) Negative (Negative) Influenza B (Rapid) Negative (Negative) Microbiology and Other Data: Microbiology 06/19/18 15:34 Anaerobic Blood Culture - Preliminary Blood Venous 06/20/18 08:25 Gram Stain - Final Sputum 06/19/18 15:57 Influenza Types A,B Antigen - Final Nasal Specimen received for Influenza A/B Molecular testing Assess/Plan/Problems-Billing Assessment: 47 year Female with asthma/copd, here with pneumonia and COPD exacerbation. Also found to have bactremia. - Patient Problems (1) Bacteremia Current Visit: Yes Status: Acute Code(s): R78.81 - BACTEREMIA SNOMED Code( s): 2409469 Comment: Blood culture from 06/19 shows strep pneumo, repeat cultures negative thus far, continue w/ rocephin and azithyromcyin. (2) Pneumonia Current Visit: Yes Status: Acute Code(s): J18.9 - PNEUMONIA, UNSPECIFIED ORGANISM SNOMED Code(s): 190275766 Comment: right middle lobe pneumonia, c/w rocephin and azithromycin Day 4. urine legionella is negative., sputum shows strep pneumo (3) COPD exacerbation Current Visit: Yes Status: Acute Code(s): J44.1 - CHRONIC OBSTRUCTIVE PULMONARY DISEASE W (ACUTE) EXACERBATION SNOMED Code(s): 841635044 Comment: continue prednisone 40mg, duonebs. Improved. (4) Smoker Current Visit: Yes Status: Acute Code(s): F17.200 - NICOTINE DEPENDENCE, UNSPECIFIED, UNCOMPLICATED SNOMED Code(s): 13882063 Comment: nicotine patch (5) Alcohol use Current Visit: Yes Status: Acute Code(s): Z78.9 - OTHER SPECIFIED HEALTH STATUS SNOMED Code(s): 408828 Comment: Not withdrawing, will monitor for withdrawal. continue thiamine, folic acid. (6) DVT prophylaxis Current Visit: Yes Status: Acute Code(s): KSS0116 - SNOMED Code(s): 177325260 Comment: heparin subQ (7) Hypomagnesemia Current Visit: Yes Status: Acute Code(s): E83.42 - HYPOMAGNESEMIA SNOMED Code(s): 960640621 Comment: repleted 06/22 (8) Hypokalemia Current Visit: Yes Status: Acute Code(s): E87.6 - HYPOKALEMIA SNOMED Code( s): 34032683 Comment: Repleted 06/22 (9) Hypophosphatemia Current Visit: Yes Status: Acute Code(s): E83.39 - OTHER DISORDERS OF PHOSPHORUS METABOLISM SNOMED Code(s): 9684901 Comment: repleted 06/22 Status and Disposition: Likely discharge home when medically stable.
[2018-06-22] MEDS ORDERED: Ondansetron INJ* 2 MG/ML VIAL IV PRN (08:38)
[2018-06-22] MEDS: Albuterol/Ipratropium NEB.SOL* Albuterol 2.5 MG/Ipratropium 0.5 MG 3 ML INH PRN (08:59)
[2018-06-22] MEDS ORDERED: Potassium Phosphate IV* 15 MMOLE in NS 0.9% 250 ML* 250 ML IVPB ONE (09:30)
[2018-06-22] MEDS: cefTRIAXone(*) 1 GM in NS 0.9% 50 ML* 50 ML IVPB SCH (19:49)
[2018-06-22] MEDS: Azithromycin IV(*) 500 MG in NS 0.9% 250 ML* 250 ML IVPB SCH (21:24)
[2018-06-22] MEDS: Nicotine Inhaler* 10 MG AMP INH PRN (21:27)
[2018-06-23] MEDS: NS 0.9% 1000 ML** 1,000 ML IV SCH (01:09)
[2018-06-23] MEDS: Heparin VIAL(*) 5000 UNITS/ML VIAL (FIVE THOUSAND) SUBCUT SCH ×2 (05:26→13:12)
[2018-06-23] MEDS: HYDROcodone/ACETAMIN 5-325 MG* 1 TAB PO PRN ×2 (05:28→11:25)
[2018-06-23] MEDS: Nicotine Patch Removal NOTE FOLLOW UP SCH (05:36)
[2018-06-23 07:39] LABS: BUN/Creatinine Ratio 14.6 (8-20); Calcium 8.8 mg/dL (8.6-10.3); EGFR African American 168.5 (>60); EGFR Non-African American 139.2 (>60); Magnesium 1.6 mg/dL (1.9-2.7); Phosphorus 2.8 mg/dL (2.5-5.0); Potassium 3.1 mmol/L (3.5-5.0)
[2018-06-23] MEDS: Gabapentin CAP(*) 300 MG PO SCH ×2 (07:44→12:59)
[2018-06-23] MEDS: Folic Acid TAB* 1 MG PO SCH (07:44)
[2018-06-23] MEDS: Omeprazole CAP (NF) 20 MG CAP.DR PO SCH (07:44)
[2018-06-23] MEDS: Thiamine TAB* 100 MG TAB PO SCH (07:45)
[2018-06-23] MEDS: Nicotine PATCH 14 MG/24 HR* PATCH TRANSDERM SCH (07:45)
[2018-06-23] MEDS: predniSONE TAB* 20 MG PO SCH (07:45)
[2018-06-23] MEDS: Citalopram TAB* 40 MG PO SCH (07:45)
[2018-06-23] MEDS ORDERED: Potassium Chlor TAB* 20 MEQ TAB.ER PO ONE (08:43)
[2018-06-23] MEDS ORDERED: Magnesium Sulfate 2 GM IV* 2 GM/50 ML BAG IVPB ONE (08:44)
--- NOTE | 2018-06-23 08:54 | PN ---
Subjective Date of Service: 06/23/18 Interval History: Doing well, has no acute issues. no chest pain, no shortness of breath. Objective Active Medications: Acetaminophen (Tylenol Tab*) 650 mg PO Q4H PRN PRN Reason: FEVER/HEADACHE Last Admin: 06/22/18 08:48 Dose: 650 mg Hydrocodone Bitart/Acetaminophen ([place] 5-325 Tab*) 1 tab PO Q6H PRN PRN Reason: PAIN Last Admin: 06/23/18 05:28 Dose: 1 tab Albuterol/Ipratropium (Duoneb (Albuterol 2.5 Mg/Ipratropium 0.5 Mg)) 1 neb INH Q4H PRN PRN Reason: SOB/WHEEZING Last Admin: 06/22/18 08:59 Dose: 1 neb Citalopram Hydrobromide (Celexa Tab*) 40 mg PO DAILY [facility] Last Admin: 06/23/18 07:45 Dose: 40 mg Folic Acid (Folvite Tab*) 1 mg PO DAILY [facility] Last Admin: 06/23/18 07:44 Dose: 1 mg Gabapentin (Neurontin Cap(*)) 300 mg PO TID [facility] Last Admin: 06/23/18 07:44 Dose: 300 mg Heparin Sodium (Porcine) (Heparin Vial(*)) 5,000 units SUBCUT Q8HR [facility] Last Admin: 06/23/18 05:26 Dose: 5,000 units Ceftriaxone Sodium 1 gm/ (Sodium Chloride) 50 mls @ 200 mls/hr IVPB Q24H [facility] Last Admin: 06/22/18 19:49 Dose: 200 mls/hr Azithromycin 500 mg/ Sodium (Chloride) 250 mls @ 250 mls/hr IVPB Q24H [facility] Last Admin: 06/22/18 21:24 Dose: 250 mls/hr Sodium Chloride (Ns 0.9% 1000 Ml*) 1,000 mls @ 100 mls/hr IV PER RATE [facility] Last Admin: 06/23/18 01:09 Dose: 100 mls/hr Magnesium Sulfate (Magnesium Sulfate 2 Gm Iv*) 2 gm in 50 mls @ 50 mls/hr IVPB ED ONCE ONE Stop: 06/23/18 09:43 Ibuprofen (Motrin Tab*) 800 mg PO TID PRN PRN Reason: PAIN Lorazepam (Ativan Tab(*)) 0 - 6 mg PO .PER [facility] PROTOCOL [facility]; Protocol Nicotine (Nicotine Patch 14 Mg/24 Hr*) 1 patch TRANSDERM DAILY [facility] Last Admin: 06/23/18 07:45 Dose: Not Given Nicotine (Nicotine Inhaler*) 10 mg INH Q2H PRN PRN Reason: CRAVING Last Admin: 06/22/18 21:27 Dose: 10 mg Omeprazole (Prilosec Cap*) 20 mg PO DAILY [facility] Last Admin: 06/23/18 07:44 Dose: 20 mg Ondansetron HCl (Zofran Inj*) 4 mg IV Q6H PRN PRN Reason: NAUSEA Pharmacy Profile Note (Nicotine Patch Removal Note*) 1 note FOLLOW UP 0600 [facility] Last Admin: 06/23/18 05:36 Dose: Not Given Prednisone (Deltasone Tab*) 40 mg PO DAILY [facility] Last Admin: 06/23/18 07:45 Dose: 40 mg Thiamine HCl (Vitamin B-1 Tab*) 100 mg PO DAILY [facility] Last Admin: 06/23/18 07:45 Dose: 100 mg Vital Signs - 8 hr 06/23/18 06/23/18 06/23/18 02:59 05:28 05:31 Temperature 97.5 F Pulse Rate 68 67 Respiratory 16 16 Rate Blood Pressure 171/97 156/90 (mmHg) O2 Sat by Pulse 97 Oximetry 06/23/18 06/23/18 06/23/18 07:10 07:18 07:44 Temperature 97.6 F Pulse Rate 57 64 Respiratory 16 18 Rate Blood Pressure 157/94 (mmHg) O2 Sat by Pulse 96 Oximetry 06/23/18 06/23/18 06/23/18 07:46 07:48 08:41 Temperature Pulse Rate Respiratory 18 18 16 Rate Blood Pressure (mmHg) O2 Sat by Pulse Oximetry Oxygen Devices in Use Now: None Appearance: lying in bed, not in distress. Eyes: PERRLA Respiratory: Clear to Auscultation Cardiovascular: RRR, No Edema Neurological: Alert and Oriented x 3 Result Diagrams: 06/22/18 05:42 06/23/18 07:02 Additional Lab and Data: Lab Results 06/19/18 06/19/18 06/19/18 Range/Units 15:34 15:34 16:13 WBC 13.4 H (3.5-10.8) 10^3/ul RBC 3.68 L (4.00-5.40) 10^6/ul Hgb 12.5 (12.0-16.0) g/dl Hct 37 (35-47) % MCV 100 H (80-97) fL MCH 34 H (27-31) pg MCHC 34 (31-36) g/dl RDW 13 (10.5-15) % Plt Count 227 (150-450) 10^3/ul MPV 7.1 L (7.4-10.4) fL Neut % (Auto) Pending Lymph % (Auto) Pending [place] % (Auto) Pending Eos % (Auto) Pending Baso % (Auto) Pending Absolute Neuts (auto) Pending Absolute Lymphs (auto) Pending Absolute Monos (auto) Pending Absolute Eos (auto) Pending Absolute Basos (auto) Pending Absolute Nucleated RBC Pending Nucleated RBC % Pending INR (Anticoag Therapy) 0.94 (0.77-1.02) D-Dimer, Quantitative 239 H (Less Than 230) ng/mL Influenza A (Rapid) Negative (Negative) Influenza B (Rapid) Negative (Negative) Microbiology and Other Data: Microbiology 06/19/18 15:34 Anaerobic Blood Culture - Preliminary Blood Venous 06/20/18 08:25 Gram Stain - Final Sputum 06/19/18 15:57 Influenza Types A,B Antigen - Final Nasal Specimen received for Influenza A/B Molecular testing Assess/Plan/Problems-Billing Assessment: 47 year Female with asthma/copd, here with pneumonia and COPD exacerbation. Also found to have bactremia. - Patient Problems (1) Bacteremia Current Visit: Yes Status: Acute Code(s): R78.81 - BACTEREMIA SNOMED Code( s): 1122738 Comment: Blood culture from 06/19 shows strep pneumo, repeat cultures negative thus far, continue w/ rocephin and azithyromcyin. (2) Pneumonia Current Visit: Yes Status: Acute Code(s): J18.9 - PNEUMONIA, UNSPECIFIED ORGANISM SNOMED Code(s): 777916494 Comment: right middle lobe pneumonia, c/w rocephin and azithromycin Day 4. urine legionella is negative., sputum shows strep pneumo. likely discharge with cefuroxime. (3) COPD exacerbation Current Visit: Yes Status: Acute Code(s): J44.1 - CHRONIC OBSTRUCTIVE PULMONARY DISEASE W (ACUTE) EXACERBATION SNOMED Code(s): 217324527 Comment: continue prednisone 40mg, duonebs. Improved. (4) Smoker Current Visit: Yes Status: Acute Code(s): F17.200 - NICOTINE DEPENDENCE, UNSPECIFIED, UNCOMPLICATED SNOMED Code(s): 97383485 Comment: nicotine patch (5) Alcohol use Current Visit: Yes Status: Acute Code(s): Z78.9 - OTHER SPECIFIED HEALTH STATUS SNOMED Code(s): 610550 Comment: Not withdrawing, will monitor for withdrawal. continue thiamine, folic acid. (6) DVT prophylaxis Current Visit: Yes Status: Acute Code(s): LQD0824 - SNOMED Code(s): 729969377 Comment: heparin subQ (7) Hypomagnesemia Current Visit: Yes Status: Acute Code(s): E83.42 - HYPOMAGNESEMIA SNOMED Code(s): 920622138 Comment: repleted 06/23 (8) Hypokalemia Current Visit: Yes Status: Acute Code(s): E87.6 - HYPOKALEMIA SNOMED Code( s): 88998570 Comment: Repleted 06/23 (9) Hypophosphatemia Current Visit: Yes Status: Acute Code(s): E83.39 - OTHER DISORDERS OF PHOSPHORUS METABOLISM SNOMED Code(s): 6348130 Comment: repleted 06/22 Status and Disposition: Anticipate discharge later today..
--- NOTE | 2018-06-23 13:17 | DS ---
CC: Dr. Bhavani Jones DISCHARGE SUMMARY: DATE OF ADMISSION: 06/19/18 DATE OF DISCHARGE: 06/23/18 PRIMARY CARE PROVIDER: Dr. Bhavani Jones REASON FOR ADMISSION: Chest pressure at the right lung, cough. HOSPITAL COURSE: This is a 47-year-old female with past medical history of COPD, smoker, asthma, who was admitted to the hospital because of cough and right-sided chest pain. During the emergency room visit, she was found to have hypoxic respiratory failure with sepsis secondary to pneumonia. CAT sc an of the chest was done to rule out pulmonary embolism. White count initially was 13.4. She was st arted on Rocephin, azithromycin, prednisone, oxygen, and breathing treatments. She was also found to have hypokalemia, as well as hyponatremia, for which IV fluids and potassium repletion was ordered. The patient also has history of alcohol use, for which we started her on alcohol withdrawal protocol and started her on folic acid and thiamine, and was also started her on heparin subcu for DVT prophyl axis. Through the hospital course, the patient continued to improve on Rocephin, azithromycin. Her blood culture came back positive 1 bottle growing Strep pneumoniae. Subsequent blood culture that wa s done on 06/20/18 remained negative to date. Her sputum culture also grew Strep pneumoniae. We wer e able to wean her off of oxygen. She has been walking around, not requiring any oxygen. Plan was made to discharge her. Hospital workup included CTA, which ruled out a pulmonary embolism. She was also found to have leuko cytosis on admission with a white count of 13.4, was also found to have hypokalemia, as well as hypom agnesemia, as well as hypophosphatemia, of which we repleted all those electrolytes. Her influenza A and B remained negative. CONDITION OF THE PATIENT ON DISCHARGE: Fair and stable. DISCHARGE PLAN: The patient is to follow up with the primary care provider, Dr. aKren Beckham within a week, the patient to return to the emergency room for fevers, chills, worsening cough, chest pain or if any new symptoms occur. DISCHARGE MEDICATIONS: Include: 1. Ipratropium inhaler 2 puffs every 4 hours. 2. Albuterol inhaler 2 puffs every 4 hours as needed. 3. Ibuprofen 800 mg 3 times a day as needed. 4. Gabapentin 200 mg 2 times a day. 5. Citalopram 40 mg daily. 6. Omeprazole 20 mg daily. New medications include: 1. Cefuroxime 500 mg every 12 hours for the next 11 days. 2. Folic acid 1 tab daily. 3. Thiamine 200 mg daily. 4. Cefuroxime, folic acid, thiamine prescriptions were sent to her pharmacy. DISCHARGE DIAGNOSES: 1. Sepsis secondary to Strep bacteremia/pneumonia. 2. Acute hypoxic respiratory failure, resolved, not requiring oxygen anymore. 3. Chronic alcohol use. 4. Hypokalemia, hypomagnesemia, hypophosphatemia. 5. Chronic smoker. [id number]/[facility] #: [id number]
[2018-06-23 15:08] VITALS: BP 149/69
[2018-06-24] MEDS ORDERED: Pantoprazole TAB * 40 MG TAB PO SCH (09:00)
== END 2018-06-23 17:05 | disposition home or self-care (01) | DRG 871 ==
LOC: ED 15:48 → MED 18:27
PROVIDERS: ADMIT Internal Medicine; ATTEND Internal Medicine
DX: A40.3 Sepsis due to Streptococcus pneumoniae (principal); J96.01 Acute respiratory failure with hypoxia; J18.1 Lobar pneumonia, unspecified organism; E87.1 Hypo-osmolality and hyponatremia; J44.1 Chronic obstructive pulmonary disease with (acute) exacerbation; E87.6 Hypokalemia; E83.42 Hypomagnesemia; E83.39 Other disorders of phosphorus metabolism; Z72.89 Other problems related to lifestyle; Z83.79 Family history of other diseases of the digestive system; Z83.6 Family history of other diseases of the respiratory system
CPT/HCPCS: 36415; 71045; 71275; 80048; 80053; 82550; 82553; 83605; 83735; 84100; 84484; 84702; 85025; 85027; 85379; 85610; 86140; 87040; 87070; 87077; 87186; 87205; 87899; 93005; 94640; 99284; 99406; A9270-GY; J0456; J0696; J1644; J2543; J2930; J3411; J3475; J3480; J7512; Q9967